=== PATIENT | female | born 1990 | race African-American/Black ===

== ENCOUNTER 2020-04-20 12:09 | Outpatient (CLI) | payer OTHER, SELFPAY | END 2020-04-20 12:10 | disposition home or self-care (01) | PROVIDERS: PCP Physician Assistant; Visit Provider Obstetrics & Gynecology | DX: O26.851 Spotting complicating pregnancy, first trimester (principal) | CPT/HCPCS: 36415; 84702 ==

== ENCOUNTER 2020-05-01 20:55 | Emergency (ER) | payer OTHER, SELFPAY ==
[2020-05-01 20:58] VITALS: BP 151/75; PULSE 84; RESP 18; TEMP 36.2; O2SAT 100
--- NOTE | 2020-05-01 21:32 | ED.FEMALEGU ---
HPI - Female Genitourinary General Chief complaint: Vaginal Bleeding Stated complaint: 6 weeks preg, spotting, mild jin Time Seen by Provider: 05/01/20 21:14 History of Present Illness HPI Narrative: Light vaginal spotting for 3 days. She is approximately 6 weeks . She had a confirmatory US earlier this week showing Normal IUP. She has mild discomfort. Related Data Allergies Allergy/AdvReac Type Severity Reaction Status Date / Time aspirin Allergy Severe FACIAL Verified 05/01/20 20:57 SWELLING ibuprofen Allergy Mild EYE Verified 05/01/20 20:57 SWELLING mushroom Allergy Unknown Swelling Verified 05/01/20 20:57 of the Eye NSAIDS (Non-Steroidal Allergy Unknown Swelling Verified 05/01/20 20:57 Anti-Inflamma Mushroom Allergy Unknown FACIAL/EYE Uncoded 04/19/20 11:46 SWELLING PMFSH Family History Family History Father Family history of premature coronary heart disease, Onset Age: 46 Patient's father is Family history of heart disease in male family member before age 55 Diabetes mellitus Family history of cardiovascular disease Mother Diabetes mellitus Hypertension Family history of congestive heart failure Grandparent Cerebrovascular accident Other Family history of allergic disorder Family history of elevated blood lipids Social History Social History Smoking status: Never smoker Alcohol intake: current Gender identity (if verbalized by the patient): Female Exam Const: General: healthy appearing, no acute distress and alert Orientation/consciousness: patient oriented x3 HENMT: Head: normal to inspection Neck: Neck: normal visual inspection and no lymphadenopathy Chest: Chest palpation & inspection: no tenderness Resp: Effort & Inspection: normal respiratory effort Auscultation: clear to auscultation bilaterally, no rales, no rhonchi and no wheezes Cardio: Jugular venous distension: no JVD Rate: regular rate Rhythm: regular rhythm Heart sounds: no murmurs GI: Inspection: non-distended GI Palp: Yes Soft to palpation and No Tenderness to palpation present (GI) Skin: General skin exam: normal color Neuro: General: patient oriented x3 and moves all extremities Speech: normal speech Extrem: General: no edema Psych: Appearance: well kempt Affect: normal affect Course Vital Signs Vital signs: Vital Signs Temperature 36.2 C L 05/01/20 20:58 Pulse Rate 84 05/01/20 20:58 Respiratory Rate 18 05/01/20 20:58 Blood Pressure 151/75 H 05/01/20 20:58 Pulse Oximetry 100 05/01/20 20:58 Temperature 36.2 C L 05/01/20 20:58 Pulse Rate 70 05/01/20 21:42 Respiratory Rate 18 05/01/20 21:42 Blood Pressure 132/77 05/01/20 21:42 Pulse Oximetry 98 05/01/20 21:42 MDM - Female Genitourinary MDM Narrative Medical decision making narrative: She already has confirmed IUP and she is only having minimal discomfort. She does not need emergent imaging at this time. I offered to contact her OBGYN office to discuss what was going on and she declined to wait. I discussed return precautions and suggested that she call them in the morning. Medical Records Attestation: I reviewed the patient's medical records. Discharge Plan Discharge Clinical Impression: Vaginal bleeding before 22 weeks gestation Patient Disposition: Home, Self-Care Condition: Stable Instructions: Non-Threatening First Trimester Vaginal Bleed (ED) Additional Instructions: Pelvic rest until OBGYN follow-up Follow-up/Referrals: Surendra Garnett MD [Physician] - Santo,SLOAN Silvestre [Primary Care Provider] - Discharge Date/Time: 05/01/20 21:43
[2020-05-01 21:42] VITALS: BP 132/77; PULSE 70; RESP 18; O2SAT 98
== END 2020-05-01 21:43 | disposition home or self-care (01) ==
PROVIDERS: Emergency Provider Emergency Medicine; PCP Physician Assistant
DX: O20.9 Hemorrhage in early pregnancy, unspecified (principal); Z3A.01 Less than 8 weeks gestation of pregnancy
CPT/HCPCS: 99284

== ENCOUNTER 2020-05-02 14:09 | Outpatient (CLI) | payer OTHER, SELFPAY ==
--- NOTE | ~2020-05-02 | US_ITS ---
EXAMINATION: US OB <=14 wk fetus w TV DATE: 05/02/2020 15:00 INDICATION: Spotting during first trimester of . TECHNIQUE: Real-time pelvic ultrasound utilizing both a transvaginal and transabdominal probe was pe rformed. The interpreting radiologist was not present for the study. COMPARISON: None. FINDINGS: The uterus measures 9.3 x 5.0 x 6.1 cm. There is an intrauterine gestational sac double decidua sign but with no evident no yolk sac or pole. The mean sac diameter measures 1.7 cm, which correlat es with an estimated gestational age of 6 weeks and 3 days. The right ovary is not visualized. The left ovary measures 3.5 x 2.6 x 2.1 cm. 1.4 cm anechoic likely corpus luteum cyst in the left ovary. Vascular flow is identified in the left ovary on color Doppler . No abnormal adnexal masses identified. There is no free fluid in the pelvis. IMPRESSION: 1. Intrauterine gestational sac with double decidua sign but no discernible yolk sac or pole wh ich could be due to early or failed . Follow-up with serial beta hCGs and repeat ultrasound as clinically indicated. 2. Gestational age by ultrasound based upon mean sac diameter of 6 weeks 3 day(s) +/- 4 day(s) with ultrasound estimated date of delivery (JANA) of 12/23/2020. Reviewed, dictated and finalized at location A. IMPRESSION: 1. Intrauterine gestational sac with double decidua sign but no discernible yol k sac or pole which could be due to early or failed . Follow-up with serial beta hCGs and repeat ultrasound as clinically indicated. 2. Gestational age by ultrasound based upon mean sac diameter of 6 weeks 3 day (s) +/- 4 day(s) with ultrasound estimated date of delivery (JANA) of 12/23/2020.
== END 2020-05-02 14:10 | disposition home or self-care (01) ==
LOC: ANHIMG 14:15
PROVIDERS: PCP Physician Assistant; Visit Provider Obstetrics & Gynecology
DX: O26.859 Spotting complicating pregnancy, unspecified trimester (principal); Z3A.01 Less than 8 weeks gestation of pregnancy
CPT/HCPCS: 76801; 76817

== ENCOUNTER 2020-05-05 12:43 | Outpatient (RCR) | payer OTHER, SELFPAY ==
[2020-04-18 15:54] LABS: Beta HCG Quantitative 284.15 mIU/ML
[2020-04-19] MEDS: RHO(D) IMMUNE GLOBULIN 300 MCG SYRINGE IM (11:29)
== END 2020-07-17 23:59 | disposition home or self-care (01) ==
LOC: ANHLAB 12:43
PROVIDERS: PCP Physician Assistant; Referring Provider Obstetrics & Gynecology; Visit Provider Nurse Practitioner
DX: O26.859 Spotting complicating pregnancy, unspecified trimester (principal); Z29.13 Encounter for prophylactic Rho(D) immune globulin; O36.0990 Maternal care for other rhesus isoimmunization, unspecified trimester, not applicable or unspecified; Z3A.00 Weeks of gestation of pregnancy not specified
CPT/HCPCS: 36415; 84702; 85461; 90384; 96372; J2790

== ENCOUNTER 2020-05-10 09:37 | Outpatient (CLI) | payer OTHER, SELFPAY ==
--- NOTE | ~2020-05-10 | US_ITS ---
EXAMINATION: US OB <= 14 weeks fetus DATE: 05/10/2020 10:18 INDICATION: First trimester dating and spotting TECHNIQUE: Real-time pelvic transabdominal and transvaginal ultrasound was performed. COMPARISON: 05/02/2020 FINDINGS: The uterus measures 9.2 x 5.3 x 4.8 cm. There is an intrauterine gestational sac. A yolk s ac is identified. heart motion is identified measuring 130 beats per minute (bpm) by M-mode Dop pler. The crown rump length measures 10 mm , which correlates with an estimated gestational age of 7 weeks and 1 day(s) (+/-) 5 day(s). The right ovary is not visualized however no right adnexal abnormality is seen. The left ovary measur es 3.2 x 2 x 2.5 cm. There is no free fluid in the pelvis. IMPRESSION: 1. Live intrauterine with an estimated gestational age of 7 weeks and 1 day(s) (+/-) 5 day( s) and an estimated delivery date of 12/26/2020. Reviewed, dictated and finalized at location A. IMPRESSION: 1. Live intrauterine with an estimated gestational age of 7 weeks and 1 day(s) (+/-) 5 day(s) and an estimated delivery date of 12/26/2020.
== END 2020-05-10 09:38 | disposition home or self-care (01) ==
PROVIDERS: PCP Physician Assistant; Visit Provider Obstetrics & Gynecology
DX: O36.80X0 Pregnancy with inconclusive fetal viability, not applicable or unspecified (principal); Z3A.00 Weeks of gestation of pregnancy not specified
CPT/HCPCS: 76801

== ENCOUNTER 2021-06-08 10:40 | Emergency (ER) | payer OTHER, SELFPAY ==
[2021-06-08 11:00] VITALS: BP 146/87; PULSE 84; RESP 16; TEMP 36.5; O2SAT 99
--- NOTE | 2021-06-08 11:28 | ED.URI ---
HPI - URI/Sore Throat General Chief Complaint: Upper Respiratory Infection Stated Complaint: cough/sneezing/congestion/sore throat Source: patient and RN notes reviewed Mode of arrival: ambulatory History of Present Illness HPI Narrative: This is a 31-year-old female presented to urgent care with complaints of a sore throat, headache, runny nose, nasal and head congestion. According to patient she has had the symptoms for approximately 2 weeks with no relief she has taken [id number] medication such as DayQuil and Sudafed. Patient notes that her situation has not improved. She does not have a history of allergies. The patient denies SOB, CP, palpitation, extremity numbness, lightheadedness, dizziness, constipation, diarrhea, chills, or fever. MD elicited complaint: cough, sore throat, rhinorrhea, nasal congestion and sinus pain Related Data Home Medications Medication Instructions Recorded Confirmed amlodipine 06/08/21 06/08/21 carvedilol 06/08/21 dulaglutide [Trulicity] mg SUBCUT 06/08/21 empagliflozin [Jardiance] mg 06/08/21 escitalopram oxalate mg 06/08/21 etonogestrel-ethinyl estradiol vag ring VAGINAL 06/08/21 [EluRyng] insulin degludec [Tresiba unit SUBCUT 06/08/21 FlexTouch U-200] omeprazole 06/08/21 Allergies Allergy/AdvReac Type Severity Reaction Status Date / Time aspirin Allergy Severe FACIAL Verified 06/08/21 10:56 SWELLING ibuprofen Allergy Mild EYE Verified 06/08/21 10:56 SWELLING mushroom Allergy Unknown Swelling Verified 06/08/21 10:56 of the Eye NSAIDS (Non-Steroidal Allergy Unknown Swelling Verified 06/08/21 10:56 Anti-Inflamma Mushroom Allergy Unknown FACIAL/EYE Uncoded 06/08/21 10:56 SWELLING Review of Systems Review of Systems: Narrative: A 14 organ system Review of Systems was performed and pertinent positives included in the HPI, otherwise remaining ROS is negative. All systems reviewed & are unremarkable except as noted in HPI and below PMFSH Family History Family History Father Family history of premature coronary heart disease, Onset Age: 46 Patient's father is Family history of heart disease in male family member before age 55 Diabetes mellitus Family history of cardiovascular disease Mother Diabetes mellitus Hypertension Family history of congestive heart failure Grandparent Cerebrovascular accident Other Family history of allergic disorder Family history of elevated blood lipids Social History Social History Smoking status: Never smoker Alcohol intake: current Gender identity (if verbalized by the patient): Female Exam Narrative: Exam Narrative: GENERAL: This is a well-nourished, well-developed patient, in no apparent distress. HEAD: normocephalic, atraumatic. Temporal tenderness with palpation EYES: PERRL. Sclera clear/white. Vision is grossly intact. EARS: External ears normal, auditory canals clear and without drainage, TMs normal without perforation. Hearing grossly intact. NOSE: External nose normal with no obvious nasal discharge, nares without redness, with rhinorrhea. THROAT: Mucous membranes moist, posterior pharynx with erythematous NECK: Neck supple, non-tender without lymphadenopathy, masses or thyromegaly. CARDIOVASCULAR: Regular rate and rhythm without murmurs, gallops, or rubs. RESPIRATORY: Clear to auscultation. Breath sounds equal bilaterally. No wheezes, rales, or rhonchi. GASTROINTESTINAL: Abdomen soft, non-tender, nondistended. Bowel sounds are active. No hepato-splenomegaly, or palpable masses. No guarding. SKIN: warm, intact with no suspicious lesions or rash, good texture and turgor. NEURO: awake, alert, and oriented to person, place and time. There were no obvious focal neurologic abnormalities. Steady gait EXTREMITIES: Normal range of motion. No edema. No calf tenderness.
--- NOTE | 2021-06-09 08:20 | PC.NURSE ---
0818--pt contacted us this am, to see if we did covid testing since she was not offered one yesterday, and she has a small child at home. pt states that she has only had symptoms for 4 days, and not 2 weeks. we offered to send in a pcr test for her at [facility], pt accepted. test ordered, and faxed over and i contacted pt to let her know we faxed it, and they will be calling to schedule a test. pt thanked us and call ended.
== END 2021-06-08 11:37 | disposition home or self-care (01) ==
PROVIDERS: Emergency Provider Nurse Practitioner
DX: J01.00 Acute maxillary sinusitis, unspecified (principal)
CPT/HCPCS: 99213; G0463

== ENCOUNTER → 2021-06-09 08:40 | Outpatient (CLI) | payer OTHER, SELFPAY ==
[2021-06-09 17:52] LABS: SARS-CoV-2 RNA PCR Positive
== END ==
PROVIDERS: Visit Provider Nurse Practitioner
DX: U07.1 COVID-19 (principal)
CPT/HCPCS: C9803; U0003; U0005

== ENCOUNTER 2022-06-15 12:52 | Emergency (ER) | payer OTHER, SELFPAY ==
--- NOTE | 2022-06-15 12:55 | ED.LOWEXIN ---
HPI - Extremity Injury (Lower) General Chief Complaint: Extremity Injury, Lower Stated Complaint: right knee pain Time Seen by Provider: 06/15/22 12:52 Source: patient Mode of arrival: ambulatory Limitations: no limitations History of Present Illness HPI Narrative: Ms. Mcduffie is a 32-year-old female patient presenting to the clinic today with complaints of right knee pain. She reports she woke up this morning with this knee pain. She reports that the pain is to her anterior knee and around her patella. States no known injury but was running in the rain yesterday but did not obviously injure her knee or tweak it. Denies any pain to the back of the knee. History of osteoarthritis Related Data Home Medications Medication Instructions Recorded Confirmed amlodipine 5 mg tablet 5 mg PO DAILY 06/08/21 06/08/21 carvedilol 12.5 mg tablet 12.5 mg PO BID 06/08/21 06/08/21 dulaglutide 1.5 mg/0.5 mL 1.5 mg subcut WEEKLY 06/08/21 06/08/21 subcutaneous pen injector (Trulicity) empagliflozin 10 mg tablet 10 mg PO DAILY 06/08/21 06/08/21 (Jardiance) escitalopram oxalate 10 mg tablet 10 mg PO DAILY 06/08/21 06/08/21 etonogestrel 0.12 mg-ethinyl 1 vag ring vaginal USEASDIRECTD 06/08/21 06/08/21 estradiol 0.015 mg/24 hr vaginal ring (EluRyng) insulin degludec 200 unit/mL (3 34 unit subcut USEASDIRECTD 06/08/21 06/08/21 mL) subcutaneous pen (Tresiba FlexTouch U-200 insulin) omeprazole 20 mg capsule,delayed 20 mg PO BID 06/08/21 06/08/21 release Allergies Allergy/AdvReac Type Severity Reaction Status Date / Time aspirin Allergy Severe FACIAL Verified 06/08/21 10:56 SWELLING ibuprofen Allergy Mild EYE Verified 06/08/21 10:56 SWELLING mushroom Allergy Unknown Swelling Verified 06/08/21 10:56 of the Eye NSAIDS (Non-Steroidal Allergy Unknown Swelling Verified 06/08/21 10:56 Anti-Inflamma Mushroom Allergy Unknown FACIAL/EYE Uncoded 06/08/21 10:56 SWELLING Review of Systems Review of Systems: Pertinent positives per HPI. Patient denies any fever, chills, rash, headache, visual changes, dizziness, cough, runny nose, sore throat, shortness of breath, chest pain, palpitations, nausea, vomiting, diarrhea, constipation, abdominal pain, or any urinary issues. PMFSH Family History Family History Father Family history of premature coronary heart disease, Onset Age: 46 Patient's father is Family history of heart disease in male family member before age 55 Diabetes mellitus Family history of cardiovascular disease Mother Diabetes mellitus Hypertension Family history of congestive heart failure Grandparent Cerebrovascular accident Other Family history of allergic disorder Family history of elevated blood lipids Social History Social History Smoking status: Never smoker Alcohol intake: current Gender identity (if verbalized by the patient): Female Comments At the time of my signature, I reviewed and agree with the nursing past medical, surgical, social, and family history. There is no relevant family history pertinent to the patient complaint. Exam Narrative: General: Well-developed, well nourished, in no apparent distress Head: Normocephalic, atraumatic. Cardio: Regular rate and rhythm, s1 and s2 normal, no murmur appreciated. Resp: Clear to auscultation bilaterally, no rhonchi, rales, wheezing or rubs. Musculoskeletal: No deformity, tender to palpation over the anterior knee joint, crepitus felt with flexion and extension, pain with flexion of the right knee, grossly normal range of motion, muscle strength strong and equal, peripheral pulse strong, no edema, no cyanosis, normal gait and station Course Course Emergency Course: Portions of this record may have been created with voice recognition software. Level of Care: [facility]
[2022-06-15 13:04] VITALS: BP 141/91; PULSE 81; RESP 20; TEMP 36.7; O2SAT 100
== END 2022-06-15 13:24 | disposition home or self-care (01) ==
PROVIDERS: Emergency Provider Nurse Practitioner Family
DX: M25.561 Pain in right knee (principal); M17.11 Unilateral primary osteoarthritis, right knee; I10 Essential (primary) hypertension; K21.9 Gastro-esophageal reflux disease without esophagitis; E11.9 Type 2 diabetes mellitus without complications
CPT/HCPCS: 99213; G0463

== ENCOUNTER 2022-09-03 08:25 | Emergency (ER) | payer OTHER, SELFPAY ==
--- NOTE | 2022-09-03 08:53 | ED.URI ---
HPI - URI/Sore Throat General Chief Complaint: Ear Stated Complaint: bilateral ear pain Time Seen by Provider: 09/03/22 09:18 Source: patient and RN notes reviewed Mode of arrival: ambulatory Limitations: no limitations History of Present Illness HPI Narrative: 32-year-old female presents with concern for bilateral ear pain, sinus pressure and congestion for over 1 week. She reports ear pain has worsened on the right. She reports her daughter was just discharged from the hospital with RSV. She reports she has tried occasional Sudafed or other cold medicine she had around the house without relief. She reports cough that is improving. MD elicited complaint: other (Ear pain) Related Data Home Medications Medication Instructions Recorded Confirmed etonogestrel 0.12 mg-ethinyl 1 vag ring vaginal USEASDIRECTD 06/08/21 06/15/22 estradiol 0.015 mg/24 hr vaginal ring (EluRyng) dulaglutide 3 mg/0.5 mL 3 mg subcut WEEKLY 06/15/22 06/15/22 subcutaneous pen injector (Trulicity) empagliflozin 10 mg-metformin ER 1,000 tablet PO DAILY 06/15/22 06/15/22 1,000 mg tablet,extended release 24hr (Synjardy XR) Allergies Allergy/AdvReac Type Severity Reaction Status Date / Time aspirin Allergy Severe FACIAL Verified 06/08/21 10:56 SWELLING ibuprofen Allergy Mild EYE Verified 06/08/21 10:56 SWELLING mushroom Allergy Unknown Swelling Verified 06/08/21 10:56 of the Eye NSAIDS (Non-Steroidal Allergy Unknown Swelling Verified 06/08/21 10:56 Anti-Inflamma Mushroom Allergy Unknown FACIAL/EYE Uncoded 06/08/21 10:56 SWELLING Review of Systems Review of Systems: CONSTITUTIONAL: Denies malaise, chills, sweats, or fever. EYES: Denies visual changes, redness, or discharge. ENT: Denies rhinorrhea, congestion, sinus pain, and sore throat. Reports bilateral ear pain, worse on the right CARDIOVASCULAR: Denies chest pain, palpitations, or edema. RESPIRATORY: Reports cough. Denies dyspnea. GASTROINTESTINAL: Denies abdominal pain, nausea, vomiting, diarrhea SKIN: Denies rash or itching. MUSCULOSKELETAL: Denies myalgia. NEUROLOGIC: Denies headache. All systems reviewed & are unremarkable except as noted in HPI and below PMFSH Family History Family History Father Family history of premature coronary heart disease, Onset Age: 46 Patient's father is Family history of heart disease in male family member before age 55 Diabetes mellitus Family history of cardiovascular disease Mother Diabetes mellitus Hypertension Family history of congestive heart failure Grandparent Cerebrovascular accident Other Family history of allergic disorder Family history of elevated blood lipids Social History Social History Smoking status: Never smoker Alcohol intake: current Gender identity (if verbalized by the patient): Female Comments At time of signature, agree with nursing past medical, surgical, social and family history. There is no relevant family history pertinent to the presenting complaint Exam Narrative: GENERAL: Well-appearing, well-nourished, and in no acute distress. HEAD: Normocephalic EYES: PERRLA, conjunctivae clear ENT: Nares clear, clear discharge. Mucous membranes moist. Left TM pearly quijano with dull light reflex, right TM erythematous and bulging; no tragal tenderness. Oropharynx not erythematous without lesions. Tonsils not enlarged and without exudate, no drooling, no hoarseness, no trismus, uvula midline. NECK: Supple. No lymphadenopathy CHEST: Clear to auscultation, breath sounds equal. No wheezing, rhonchi, rales, or stridor. No respiratory distress, speaks in full sentences. HEART: Regular rate and rhythm. No murmur heard. SKIN: Warm, dry, no rash. NEURO: Alert and oriented x3. PSYCH: Normal mood and affect Course Course Emergency Course: Mike
[2022-09-03 09:03] VITALS: BP 141/96; PULSE 80; RESP 14; TEMP 36.8; O2SAT 99
== END 2022-09-03 09:36 | disposition home or self-care (01) ==
PROVIDERS: Emergency Provider Nurse Practitioner
DX: H66.001 Acute suppurative otitis media without spontaneous rupture of ear drum, right ear (principal); K21.9 Gastro-esophageal reflux disease without esophagitis
CPT/HCPCS: 99213; G0463

== ENCOUNTER 2022-12-09 09:43 | Emergency (ER) | payer OTHER, SELFPAY ==
[2022-12-09 09:48] VITALS: BP 148/104; PULSE 109; RESP 16; TEMP 37; O2SAT 100
--- NOTE | 2022-12-09 10:07 | ED.URI ---
HPI - URI/Sore Throat General Chief Complaint: Upper Respiratory Infection Stated Complaint: Sore Throat Time Seen by Provider: 12/09/22 10:07 History of Present Illness HPI Narrative: Patient presents with a sore throat. No trouble swallowing no drooling. Related Data Home Medications Medication Instructions Recorded Confirmed etonogestrel 0.12 mg-ethinyl 1 vag ring vaginal USEASDIRECTD 06/08/21 12/09/22 estradiol 0.015 mg/24 hr vaginal ring (BhavikuRyng) dulaglutide 3 mg/0.5 mL 3 mg subcut WEEKLY 06/15/22 12/09/22 [facility] empagliflozin 10 mg-metformin ER 1,000 tablet PO DAILY 06/15/22 12/09/22 1,000 mg tablet,extended release 24hr (Synjardy XR) Allergies Allergy/AdvReac Type Severity Reaction Status Date / Time aspirin Allergy Severe FACIAL Verified 12/09/22 10:07 SWELLING ibuprofen Allergy Mild EYE Verified 12/09/22 10:07 SWELLING mushroom Allergy Unknown Swelling Verified 12/09/22 10:07 of the Eye NSAIDS (Non-Steroidal Allergy Unknown Swelling Verified 12/09/22 10:07 Anti-Inflamma Review of Systems Review of Systems: CONSTITUTIONAL: Denies chills, or sweats. Reports fever and generalized body aches EYES: Denies visual changes, redness, or discharge. ENT: Denies otalgia. Reports nasal congestion runny nose and sore throat CARDIOVASCULAR: Denies chest pain, palpitations, or edema. RESPIRATORY: Denies dyspnea. Reports occasional cough GASTROINTESTINAL: Denies abdominal pain, nausea, vomiting, or diarrhea. GENITOURINARY: Denies dysuria or hematuria. SKIN: Denies rash or itching. MUSCULOSKELETAL: Denies back pain, joint pain, or myalgia. Reports generalized body aches NEUROLOGIC: Denies headache, numbness, or weakness. PSYCHIATRIC: Denies anxiety or depression. [facility] Family History Family History Father Family history of premature coronary heart disease, Onset Age: 46 Patient's father is Family history of heart disease in male family member before age 55 Diabetes mellitus Family history of cardiovascular disease Mother Diabetes mellitus Hypertension Family history of congestive heart failure Grandparent Cerebrovascular accident Other Family history of allergic disorder Family history of elevated blood lipids Social History Social History Smoking status: Never smoker Alcohol intake: current Gender identity (if verbalized by the patient): Female Comments At time of signature, agree with nursing past medical, surgical, social and family history. There is no relevant family history pertinent to the presenting complaint Exam Narrative: The patient is a well-developed, well-nourished in no acute distress. SKIN: Skin is warm and dry without erythema, swelling or exudate. There is good turgor. No tenting. HEAD: Atraumatic. Normocephalic. No temporal or scalp tenderness. EYES: Moist and bright. Sclera and conjunctivae normal. No discharge. PERRLA. Extraocular motions intact. Gross visual acuity intact. EARS: Pinna is normal shape and contour. Clear external auditory canals. TM pearly thrasher with good cone of light, no erythema or suppuration. Bilateral cerumen noted no gross hearing deficit. NOSE: pink, moist mucosa with good air movement. Clear rhinorrhea without nasal flaring. Septum midline. Mouth: moist mucous membranes. THROAT; mild pharyngeal erythema noted to posterior oropharynx with moderate postnasal drainage. Without exudate or ulceration.. Uvula midline. Normal movement of soft palate. NECK: Supple and nontender with full range of motion without discomfort. No meningeal signs. LUNGS: Equal and bilateral breath sounds without wheezes, rales or rhonchi. CHEST: The chest wall is without retractions or use of accessory muscles. HEART: Has a regular rate and rhythm without murmur, gallops, cl
== END 2022-12-09 10:14 | disposition home or self-care (01) ==
PROVIDERS: Emergency Provider Nurse Practitioner Family
DX: J02.0 Streptococcal pharyngitis (principal)
CPT/HCPCS: 87880; 99213; G0463

== ENCOUNTER 2023-06-23 17:00 | Emergency (ER) | payer OTHER, SELFPAY ==
--- NOTE | ~2023-06-23 | XR_ITS ---
EXAMINATION: XR ankle RT min 3V DATE: 06/23/2023 17:35 INDICATION: Lateral malleolar pain and swelling at the right ankle TECHNIQUE: Anteroposterior, oblique, mortise, and lateral views of the right ankle were obtained. COMPARISON: None. FINDINGS: Alignment is normal. No fracture. Joint spaces are normal. Small Achilles and plantar calcaneal spurs . No ankle joint effusion. Mild soft tissue swelling along the posterolateral aspect of the lateral m alleolus. No cortical erosions or periosteal reaction. IMPRESSION: 1. No right ankle joint effusion or acute osseous abnormality. Reviewed, dictated and finalized at location A.
[2023-06-23 17:08] VITALS: BP 133/90; PULSE 86; RESP 17; TEMP 36.9; O2SAT 100
--- NOTE | 2023-06-23 17:24 | ED.LOWEXIN ---
HPI - Extremity Injury (Lower) General Chief Complaint: Extremity Injury, Lower Stated Complaint: Right ankle injury Time Seen by Provider: 06/23/23 17:06 History of Present Illness HPI Narrative: 33-year-old female reports for evaluation for right ankle pain since this afternoon. Patient states she was getting up from the couch when she inverted her ankle and felt a sharp pain in the lateral malleolus. States she was able to ambulate normally after the incident, however over time she has had increased swelling and pain and now has limited range of motion, therefore came to the ED. She has not taken anything for pain. She denies other injury. Related Data Home Medications Medication Instructions Recorded Confirmed etonogestrel 0.12 mg-ethinyl 1 vag ring vaginal USEASDIRECTD 06/08/21 12/09/22 estradiol 0.015 mg/24 hr vaginal ring (BhavikuRyng) dulaglutide 3 mg/0.5 mL 3 mg subcut WEEKLY 06/15/22 12/09/22 subcutaneous pen injector (Trulicity) empagliflozin 10 mg-metformin ER 1,000 tablet PO DAILY 06/15/22 12/09/22 1,000 mg tablet,extended release 24hr (Synjardy XR) Allergies Allergy/AdvReac Type Severity Reaction Status Date / Time aspirin Allergy Severe FACIAL Verified 12/09/22 10:07 SWELLING ibuprofen Allergy Mild EYE Verified 12/09/22 10:07 SWELLING mushroom Allergy Unknown Swelling Verified 12/09/22 10:07 of the Eye NSAIDS (Non-Steroidal Allergy Unknown Swelling Verified 12/09/22 10:07 Anti-Inflamma Review of Systems Review of Systems: CONSTITUTIONAL: Denies fever, chills EYES: Denies visual changes, redness, or discharge. ENT: Denies rhinorrhea, congestion, sore throat, or otalgia. CARDIOVASCULAR: Denies chest pain, palpitations, or edema. RESPIRATORY: Denies cough or dyspnea. GASTROINTESTINAL: Denies abdominal pain, nausea, vomiting, or diarrhea. GENITOURINARY: Denies dysuria or hematuria. SKIN: Denies rash or itching. MUSCULOSKELETAL: See HPI NEUROLOGIC: Denies headache, numbness, dizziness, or weakness. PSYCHIATRIC: Denies anxiety or depression. [facility] Family History Family History Father Family history of premature coronary heart disease, Onset Age: 46 Patient's father is Family history of heart disease in male family member before age 55 Diabetes mellitus Family history of cardiovascular disease Mother Diabetes mellitus Hypertension Family history of congestive heart failure Grandparent Cerebrovascular accident Other Family history of allergic disorder Family history of elevated blood lipids Social History Social History Smoking status: Never smoker Alcohol intake: current Gender identity (if verbalized by the patient): Female Exam Narrative: GENERAL: Well-appearing, in no acute distress. HEAD: Normocephalic NECK: Supple. CHEST: No respiratory distress. Clear to auscultation, no adventitious breath sounds. HEART: Regular rate and rhythm. No murmur heard. Normal peripheral pulses. EXTREMITIES: RLE: Tenderness and edema to the lateral malleolus with palpation. Negative high squeeze. No tenderness to proximal tibia and fibula. No tenderness to remainder of lower extremity. Patient able to wiggle toes but has limited range of motion of ankle secondary to pain. Negative Bardolph. Cap refill less than 2. Sensation intact. DP pulse 2+. SKIN: Warm, dry, no rash. NEURO: No focal deficits. Alert and oriented x3. PSYCH: Normal mood and affect. Course Vital Signs Vital signs: Vital Signs Temperature 98.5 F 06/23/23 17:08 Pulse Rate 86 06/23/23 17:08 Respiratory Rate 17 06/23/23 17:08 Blood Pressure 133/90 06/23/23 17:08 Pulse Oximetry 100 06/23/23 17:08 Temperature 98.5 F 06/23/23 17:08 Pulse Rate 86 06/23/23 17:08 Respiratory Rate 17 06/23/23 17:08 Blood Pressure 133/90 08
[2023-06-23] MEDS: ACETAMINOPHEN 500 MG TABLET 1000 MG PO (17:33)
[2023-06-23] MEDS: NAPROXEN 500 MG TABLET PO (17:33)
[2023-06-23 18:18] VITALS: BP 138/88; PULSE 83; RESP 20; O2SAT 99
== END 2023-06-23 18:19 | disposition home or self-care (01) ==
PROVIDERS: Emergency Provider Physician Assistant
DX: S93.401A Sprain of unspecified ligament of right ankle, initial encounter (principal); S96.911A Strain of unspecified muscle and tendon at ankle and foot level, right foot, initial encounter; X50.9XXA Other and unspecified overexertion or strenuous movements or postures, initial encounter
CPT/HCPCS: 73610; 99283; A9270